=== PATIENT | female | born 1975 | race Two or more races ===

== ENCOUNTER 2023-06-27 18:18 | Emergency (ER) | payer OTHER ==
[~2023-06-27] VITALS: Ht 162.6 cm; Wt 84.4 kg
[2023-06-27] MEDS ORDERED: LIPITOR20 MG PO (18:34)
[2023-06-27] MEDS ORDERED: ZOFRAN8 MG PO (21:42)
[2023-06-27] MEDS ORDERED: CARAFATE1 GM/10 ML PO (21:42)
[2023-06-27] MEDS ORDERED: PEPCID20 MG PO (21:42)
== END 2023-06-27 21:53 | disposition home or self-care (01) ==
LOC: ER 18:18
PROVIDERS: General Practice
DX: K52.89 Other specified noninfective gastroenteritis and colitis (principal); Z88.6 Allergy status to analgesic agent; Z88.0 Allergy status to penicillin

== ENCOUNTER 2023-11-01 09:34 | Emergency (ER) | payer OTHER ==
[~2023-11-01] VITALS: Ht 162.6 cm; Wt 85.3 kg
[~2023-11-01 09:34] MED LIST: CARAFATE1 GM/10 ML PO; LIPITOR20 MG PO; PEPCID20 MG PO; ZOFRAN8 MG PO
[2023-11-01] MEDS ORDERED: NORVASC2.5 M1 PO (10:12)
[2023-11-01] MEDS ORDERED: HYDRODIURIL12.5 MG PO (10:13)
[2023-11-01] MEDS ORDERED: AVAPRO75 MG PO (10:13)
[2023-11-01 12:23] LABS: HEMATOCRIT 43.7 % (36.0-45.00); HEMOGLOBIN 14.8 g/dL (12.0-15.00); MEAN CELL VOLUME 91.1 fL (80.00-100.00); MEAN CORPUSCULAR HEMOGLOBIN 30.9 pg (27.00-32.0); MEAN CORPUSCULAR HGB CONC 33.9 g/dl (32.0-36.0); PLATELET COUNT 314 K/uL (150-450); URINE APPEARANCE Clear; URINE BACTERIA 2441.7 uL (0.0-1933); URINE BILIRRUBIN Negative (NEGATIVE); URINE BLOOD Negative; URINE COLOR Yellow; URINE EPITHELIAL CELLS 68.1 uL (0.0-38.8); URINE GLUCOSE Negative (NEGATIVE); URINE LEUKOCYTE Moderate; URINE NITRATE Negative; URINE PROTEIN Negative (NEGATIVE); URINE RBC 5.7 uL (0.0-20.8); URINE UROBILINOGEN 0.2 E.U./dl; URINE WBC 67.6 uL (0.0-23.2)
[2023-11-01 12:43] LABS: INR 0.98; PARTIAL THROMBOPLASTIN TIME 30.7 SECONDS (22.0-34.0); PROTHROMBIN TIME 10.3 SECONDS (9.0-11.5)
[2023-11-01 12:45] LABS: ALBUMIN 4.1 gm/dL (3.4-5.0); ALKALINE PHOSPHATASE 106 U/L (50-136); ALT/SGPT 42 U/L (12-78); AMYLASE 66 U/L (25-115); ANION GAP 6 (10.0-20.0); AST/SGOT 17 U/L (15-37); BILIRUBIN,CONJUGATED < 0.10 mg/dL (0.0-0.2); BLOOD UREA NITROGEN 16 mg/dL (7-18); BUN CREA RATIO 22 (7.0-25.0); CALCIUM 10.2 mg/dL (8.5-10.1); CARBON DIOXIDE 34 mEq/L (21-32); CHLORIDE 105 mmol/L (98-107); CREATININE SERUM 0.73 mg/dL (0.55-1.02); GFR 85.45; GLOBULINA 3.9 G/DL (2.4-3.5); GLUCOSE FASTING 94 mg/dL (65-100); LIPASE 31 U/L (13-75); OSMOLALITY SERUM 282 MOSM/KG (275-295); POTASSIUM 3.77 mEq/L (3.5-5.1); SODIUM 141 mmol/L (136-145)
== END 2023-11-01 17:13 | disposition home or self-care (01) ==
LOC: ER 09:34
PROVIDERS: Emergency Medicine
DX: N39.0 Urinary tract infection, site not specified (principal); R10.11 Right upper quadrant pain; Z88.6 Allergy status to analgesic agent; Z88.0 Allergy status to penicillin; I10 Essential (primary) hypertension